=== PATIENT | male | born 1970 | race Caucasian/White ===

== ENCOUNTER 2023-05-03 06:06 | Inpatient (IN) | payer OTHER ==
[~2023-05-03] VITALS: Ht 193 cm; Wt 111.9 kg
[2023-05-03] MEDS ORDERED: FUROSEMIDE 40 MG/4 ML VIAL IV ONE (06:45)
[2023-05-03] MEDS ORDERED: LORazepam 2MG/ML-1ML VIAL IV ONE (07:00)
[2023-05-03 07:02] LABS: Basophils # (auto) 0 10 ^3/uL (0-0.2); Basophils % (auto) 0.5 % (0.0-2.0); Eosinophils # (auto) 0.1 10 ^3/uL (0-0.8); Eosinophils % (auto) 2.7 % (0.0-7.0); Hematocrit 31.9 % (41.0-53.0); Hemoglobin 10.7 g/dL (13.5-17.5); Lymphocytes # (auto) 1.4 10 ^3/uL (0.4-5.4); Lymphocytes % (auto) 25.4 % (10.0-50.0); Mean Corpuscular Hemoglobin 30.7 pg (28.0-32.0); Mean Corpuscular Hgb Conc. 33.6 g/dL (32.0-36.0); Mean Corpuscular Volume 91.2 fL (80.0-100.0); Monocytes # (auto) 0.5 10 ^3/uL (0-1.3); Monocytes % (auto) 9.4 % (0.0-12.0); Neutrophils # (auto) 3.4 10 ^3/uL (1.6-8.6); Nucleated Red Blood Cells % 0.1 %; Red Cell Distribution Width 15.6 % (11.8-14.3); White Blood Cell 5.4 10^3/uL (4.4-10.8)
[2023-05-03 07:13] LABS: Albumin 3.3 g/dL (3.4-5.0); Calcium 8.8 mg/dL (8.5-10.1)
[2023-05-03 07:16] LABS: BUN/Creatinine Ratio 10.5 (10.0-20.0); Bilirubin, Total 1.4 mg/dL (0.2-1.0); Total Protein 9.4 g/dL (6.4-8.2)
[2023-05-03 12:01] LABS: Urine Bacteria FEW /hpf (None Seen); Urine Blood 3+ /uL (Negative); Urine Mucus FEW (None Seen); Urine Specific Gravity 1.015 (1.001-1.035); Urine WBC 557 /hpf (0 - 3); Urine WBC Clumps PRESENT /hpf (None Seen)
[2023-05-03] MEDS ORDERED: NITROGLYCERIN 0.4 MG SL TAB SL PRN (13:15)
[2023-05-03] MEDS ORDERED: AZITHROMYCIN 500MG/ 250ML 250 ML IV ONE (13:30)
[2023-05-03] MEDS ORDERED: cefTRIAXone 1GM/50ML D5W 50 ML IV ONE (13:30)
[2023-05-03 14:06] LABS: Alcohol, Urine < 3.0 mg/dL (0-10); Amphetamine Screen, Urine POSITIVE (NEGATIVE); Barbiturate Scree,Urine NEGATIVE (NEGATIVE); Benzodiazephine Screen, Urine NEGATIVE (NEGATIVE); Cannabinoid Screen, Urine NEGATIVE (NEGATIVE); Cocaine Screen, Urine NEGATIVE (NEGATIVE)
[2023-05-03 14:15] VITALS: BP 138/96
[2023-05-03 14:15] LABS: Opiate Scree,Urine NEGATIVE (NEGATIVE); Phencyclidine Screen, Urine NEGATIVE (NEGATIVE)
[2023-05-03] MEDS ORDERED: MORPHINE SULFATE INJ 2 MG/ml SYRG IV ONE (14:15)
[2023-05-03] MEDS ORDERED: ONDANSETRON HCL 4 MG/2 ML VIAL IV ONE (14:15)
[2023-05-03 16:39] LABS: INR 1.37 (0.9-1.15); Partial Thromboplastin Time 35.3 sec (24.6-33.4)
[2023-05-03] MEDS: ALBUTEROL SULF 2.5 MG/0.5ML(0.5%) NEB SOLN NEB PRN (18:22)
[2023-05-03] MEDS: IPRATROPIUM BROM 0.5 MG/2.5ML INH SOL NEB PRN (18:22)
[2023-05-03] MEDS ORDERED: TEMAZEPAM 15 MG CAP PO ONE (23:15)
[2023-05-04 05:55] LABS: Basophils # (auto) 0 10 ^3/uL (0-0.2); Basophils % (auto) 0.8 % (0.0-2.0); Eosinophils # (auto) 0.1 10 ^3/uL (0-0.8); Eosinophils % (auto) 2.6 % (0.0-7.0); Hematocrit 27.6 % (41.0-53.0); Hemoglobin 9.4 g/dL (13.5-17.5); Lymphocytes # (auto) 1.2 10 ^3/uL (0.4-5.4); Mean Corpuscular Hemoglobin 31.4 pg (28.0-32.0); Mean Corpuscular Hgb Conc. 34.2 g/dL (32.0-36.0); Mean Corpuscular Volume 91.7 fL (80.0-100.0); Monocytes # (auto) 0.5 10 ^3/uL (0-1.3); Monocytes % (auto) 9.5 % (0.0-12.0); Neutrophils # (auto) 3.7 10 ^3/uL (1.6-8.6); Neutrophils % (auto) 65.1 % (37.0-80.0); Nucleated Red Blood Cells % 0.2 %; Red Blood Cells 3.01 10^6/uL (4.5-5.90); Red Cell Distribution Width 14.9 % (11.8-14.3); White Blood Cell 5.6 10^3/uL (4.4-10.8)
[2023-05-04 06:19] LABS: Albumin 2.7 g/dL (3.4-5.0); Calcium 8.7 mg/dL (8.5-10.1)
[2023-05-04 06:27] LABS: BUN/Creatinine Ratio 10.9 (10.0-20.0); Bilirubin, Total 1.3 mg/dL (0.2-1.0); Total Protein 8.3 g/dL (6.4-8.2)
[2023-05-04] MEDS ORDERED: HYDROcodone-ACET 5/325MG TAB PO ONE (09:30)
[2023-05-04] MEDS: ENOXAPARIN SOD 40 MG/0.4 ML SYRINGE SC SCH (09:38)
[2023-05-04] MEDS: cefTRIAXone 1GM/50ML D5W 50 ML IV SCH (09:38)
[2023-05-04] MEDS ORDERED: LISINOPRIL 10 MG TAB PO SCH (10:00)
[2023-05-04] MEDS ORDERED: AZITHROMYCIN 500MG/ 250ML 250 ML IV SCH (10:00)
[2023-05-04] MEDS ORDERED: FUROSEMIDE 20 MG/2 ML VIAL IV SCH (10:00)
[2023-05-04] MEDS ORDERED: PANTOPRAZOLE 40 MG/10 ML VIAL INJ IV SCH (10:00)
[2023-05-04] MEDS ORDERED: LEVOTHYROXINE SODIUM 100 MCG TAB PO ONE (15:00)
[2023-05-04] MEDS: ALBUTEROL SULF 2.5 MG/0.5ML(0.5%) NEB SOLN NEB PRN (18:14)
[2023-05-04] MEDS: IPRATROPIUM BROM 0.5 MG/2.5ML INH SOL NEB PRN (18:14)
[2023-05-04] MEDS: FUROSEMIDE 40 MG/4 ML VIAL IV SCH (18:38)
[2023-05-04] MEDS: DOBUTamine 1000MCG/ML 250 ML IV SCH (18:38)
[2023-05-04] MEDS: HYDROcodone-ACET 5/325MG TAB PO PRN (20:09)
[2023-05-04 22:00] VITALS: BP 111/61
[2023-05-04] MEDS: GENTAMICIN OPTH sol 0.3% 5ml EACHEYE SCH (22:45)
[2023-05-05] VITALS (41 sets, daily range): BP systolic 78–109; BP diastolic 30–67
[2023-05-05] MEDS: DOBUTamine 1000MCG/ML 250 ML IV SCH ×2 (05:34→15:02)
[2023-05-05] MEDS: FUROSEMIDE 40 MG/4 ML VIAL IV SCH (06:00)
[2023-05-05] MEDS: GENTAMICIN OPTH sol 0.3% 5ml EACHEYE SCH ×3 (06:00→21:10)
[2023-05-05] MEDS: LEVOTHYROXINE SODIUM 100 MCG TAB PO SCH (06:48)
[2023-05-05] MEDS: ALBUTEROL SULF 2.5 MG/0.5ML(0.5%) NEB SOLN NEB PRN ×3 (07:10→20:18)
[2023-05-05] MEDS: IPRATROPIUM BROM 0.5 MG/2.5ML INH SOL NEB PRN ×3 (07:10→20:18)
[2023-05-05 07:41] LABS: Basophils # (auto) 0 10 ^3/uL (0-0.2); Basophils % (auto) 0.7 % (0.0-2.0); Eosinophils # (auto) 0.2 10 ^3/uL (0-0.8); Eosinophils % (auto) 3.3 % (0.0-7.0); Hematocrit 27.1 % (41.0-53.0); Hemoglobin 9.1 g/dL (13.5-17.5); Lymphocytes % (auto) 21.9 % (10.0-50.0); Mean Corpuscular Hemoglobin 31.2 pg (28.0-32.0); Mean Corpuscular Hgb Conc. 33.7 g/dL (32.0-36.0); Mean Corpuscular Volume 92.7 fL (80.0-100.0); Monocytes # (auto) 0.5 10 ^3/uL (0-1.3); Monocytes % (auto) 10.2 % (0.0-12.0); Neutrophils % (auto) 63.9 % (37.0-80.0); Nucleated Red Blood Cells % 0.1 %; Red Blood Cells 2.92 10^6/uL (4.5-5.90); Red Cell Distribution Width 15.5 % (11.8-14.3); White Blood Cell 4.6 10^3/uL (4.4-10.8)
[2023-05-05 07:46] LABS: Potassium 3.8 mmol/L (3.5-5.1)
[2023-05-05 07:52] LABS: BUN/Creatinine Ratio 10.4 (10.0-20.0); Calcium 8.5 mg/dL (8.5-10.1)
[2023-05-05] MEDS: HYDROcodone-ACET 5/325MG TAB PO PRN ×2 (09:37→18:41)
[2023-05-05] MEDS: ENOXAPARIN SOD 40 MG/0.4 ML SYRINGE SC SCH (09:37)
[2023-05-05] MEDS: cefTRIAXone 1GM/50ML D5W 50 ML IV SCH (09:38)
[2023-05-05] MEDS: MAGNESIUM OXIDE 400 MG TAB PO SCH (09:38)
[2023-05-05] MEDS: OCTREOTIDE ACETATE 100 MCG/ML VL SUBCUT SCH ×2 (15:17→21:15)
[2023-05-05] MEDS: MIDODRINE HCL 10 MG TAB PO SCH ×2 (15:17→18:00)
[2023-05-05] MEDS: FUROSEMIDE INJECTION 100 MG in D5W 5% 100 ML IV SCH ×2 (17:08→21:00)
[2023-05-05] MEDS ORDERED: LIDOCAINE 1% (LOCAL ANESTH.) PF 5ml SDV ID ONE (18:45)
[2023-05-05] MEDS: SODIUM CHLOR 0.9% PF (SALINE LOCK) 10ML VIAL/SYR IV SCH (21:15)
[2023-05-06] VITALS (91 sets, daily range): BP systolic 80–119; BP diastolic 38–68
[2023-05-06] MEDS: DOBUTamine 1000MCG/ML 250 ML IV SCH ×5 (00:25→21:29)
[2023-05-06] MEDS: FUROSEMIDE INJECTION 100 MG in D5W 5% 100 ML IV SCH (00:26)
[2023-05-06] MEDS: NOREPINEPHRINE 8 MG/250ML KIT 250 ML IV SCH ×2 (01:35→15:00)
[2023-05-06 04:57] LABS: Basophils # (auto) 0 10 ^3/uL (0-0.2); Basophils % (auto) 0.3 % (0.0-2.0); Eosinophils # (auto) 0.2 10 ^3/uL (0-0.8); Eosinophils % (auto) 4.2 % (0.0-7.0); Hematocrit 27.3 % (41.0-53.0); Hemoglobin 9.2 g/dL (13.5-17.5); Lymphocytes % (auto) 21.7 % (10.0-50.0); Mean Corpuscular Hemoglobin 31.5 pg (28.0-32.0); Mean Corpuscular Hgb Conc. 33.7 g/dL (32.0-36.0); Mean Corpuscular Volume 93.5 fL (80.0-100.0); Monocytes # (auto) 0.4 10 ^3/uL (0-1.3); Monocytes % (auto) 9.7 % (0.0-12.0); Neutrophils # (auto) 2.9 10 ^3/uL (1.6-8.6); Neutrophils % (auto) 64.1 % (37.0-80.0); Nucleated Red Blood Cells % 0.1 %; Red Blood Cells 2.92 10^6/uL (4.5-5.90); Red Cell Distribution Width 15.4 % (11.8-14.3); White Blood Cell 4.5 10^3/uL (4.4-10.8)
[2023-05-06 05:14] LABS: BUN/Creatinine Ratio 9.7 (10.0-20.0); Calcium 8.7 mg/dL (8.5-10.1); Potassium 4.1 mmol/L (3.5-5.1)
[2023-05-06] MEDS: MIDODRINE HCL 10 MG TAB PO SCH ×3 (05:59→18:00)
[2023-05-06] MEDS: GENTAMICIN OPTH sol 0.3% 5ml EACHEYE SCH ×3 (06:00→21:29)
[2023-05-06] MEDS: OCTREOTIDE ACETATE 100 MCG/ML VL SUBCUT SCH ×3 (06:00→21:28)
[2023-05-06] MEDS: LEVOTHYROXINE SODIUM 100 MCG TAB PO SCH (06:52)
[2023-05-06] MEDS: BUMETANIDE INJECTION 25 MG in GIVE UN-DILUTED 0 ML IV SCH (08:45)
[2023-05-06] MEDS ORDERED: DIGOXIN (250MCG/ML) 2 ML AMPULE IV ONE (08:45)
[2023-05-06] MEDS: ALBUTEROL SULF 2.5 MG/0.5ML(0.5%) NEB SOLN NEB PRN (09:20)
[2023-05-06] MEDS: IPRATROPIUM BROM 0.5 MG/2.5ML INH SOL NEB PRN (09:20)
[2023-05-06] MEDS ORDERED: DOCUSATE SOD 100 MG CAP PO PRN (10:00)
[2023-05-06] MEDS: MAGNESIUM OXIDE 400 MG TAB PO SCH (10:11)
[2023-05-06] MEDS: ENOXAPARIN SOD 40 MG/0.4 ML SYRINGE SC SCH (10:11)
[2023-05-06] MEDS: HYDROcodone-ACET 5/325MG TAB PO PRN (10:12)
[2023-05-06] MEDS: cefTRIAXone 1GM/50ML D5W 50 ML IV SCH (10:12)
[2023-05-06] MEDS: SODIUM CHLOR 0.9% PF (SALINE LOCK) 10ML VIAL/SYR IV SCH ×2 (10:12→21:29)
[2023-05-06] MEDS: metOLazone 5 MG TAB PO SCH (10:35)
[2023-05-07] VITALS (84 sets, daily range): BP systolic 80–117; BP diastolic 33–72
[2023-05-07] MEDS: DOBUTamine 1000MCG/ML 250 ML IV SCH ×3 (02:38→20:01)
[2023-05-07] MEDS: NOREPINEPHRINE 8 MG/250ML KIT 250 ML IV SCH (03:35)
[2023-05-07] MEDS: BUMETANIDE INJECTION 25 MG in GIVE UN-DILUTED 0 ML IV SCH (03:54)
[2023-05-07 04:53] LABS: Basophils # (auto) 0 10 ^3/uL (0-0.2); Basophils % (auto) 0.7 % (0.0-2.0); Eosinophils # (auto) 0.2 10 ^3/uL (0-0.8); Eosinophils % (auto) 4.7 % (0.0-7.0); Hematocrit 27.9 % (41.0-53.0); Hemoglobin 9.3 g/dL (13.5-17.5); Lymphocytes # (auto) 0.9 10 ^3/uL (0.4-5.4); Mean Corpuscular Hemoglobin 31.3 pg (28.0-32.0); Mean Corpuscular Hgb Conc. 33.3 g/dL (32.0-36.0); Mean Corpuscular Volume 93.8 fL (80.0-100.0); Monocytes # (auto) 0.4 10 ^3/uL (0-1.3); Monocytes % (auto) 9.9 % (0.0-12.0); Neutrophils # (auto) 2.3 10 ^3/uL (1.6-8.6); Neutrophils % (auto) 61.7 % (37.0-80.0); Nucleated Red Blood Cells % 0.2 %; Red Blood Cells 2.97 10^6/uL (4.5-5.90); Red Cell Distribution Width 15.2 % (11.8-14.3); White Blood Cell 3.7 10^3/uL (4.4-10.8)
[2023-05-07 05:18] LABS: Calcium 8.5 mg/dL (8.5-10.1)
[2023-05-07] MEDS: OCTREOTIDE ACETATE 100 MCG/ML VL SUBCUT SCH ×3 (06:00→23:33)
[2023-05-07] MEDS: GENTAMICIN OPTH sol 0.3% 5ml EACHEYE SCH ×3 (06:00→22:00)
[2023-05-07] MEDS: MIDODRINE HCL 10 MG TAB PO SCH ×3 (06:00→17:50)
[2023-05-07] MEDS: LEVOTHYROXINE SODIUM 100 MCG TAB PO SCH (06:33)
[2023-05-07] MEDS: cefTRIAXone 1GM/50ML D5W 50 ML IV SCH (08:33)
[2023-05-07] MEDS: ENOXAPARIN SOD 40 MG/0.4 ML SYRINGE SC SCH (09:32)
[2023-05-07] MEDS: MAGNESIUM OXIDE 400 MG TAB PO SCH (09:32)
[2023-05-07] MEDS: FAMOTIDINE 20 MG TAB PO SCH (09:32)
[2023-05-07] MEDS: SODIUM CHLOR 0.9% PF (SALINE LOCK) 10ML VIAL/SYR IV SCH ×2 (09:32→23:33)
[2023-05-07] MEDS ORDERED: CALCIUM CARB 500 MG CHEW TAB PO PRN (09:45)
[2023-05-07] MEDS: metOLazone 5 MG TAB PO SCH (10:07)
[2023-05-07] MEDS: HYDROcodone-ACET 5/325MG TAB PO PRN (13:59)
[2023-05-08] VITALS (50 sets, daily range): BP systolic 85–116; BP diastolic 37–71
[2023-05-08] MEDS: DOBUTamine 1000MCG/ML 250 ML IV SCH ×5 (00:53→22:27)
[2023-05-08] MEDS: GENTAMICIN OPTH sol 0.3% 5ml EACHEYE SCH ×3 (06:00→22:00)
[2023-05-08 06:09] LABS: Basophils # (auto) 0 10 ^3/uL (0-0.2); Basophils % (auto) 0.9 % (0.0-2.0); Eosinophils # (auto) 0.1 10 ^3/uL (0-0.8); Eosinophils % (auto) 4.3 % (0.0-7.0); Hemoglobin 8.6 g/dL (13.5-17.5); Lymphocytes # (auto) 0.7 10 ^3/uL (0.4-5.4); Lymphocytes % (auto) 21.5 % (10.0-50.0); Mean Corpuscular Hemoglobin 31.2 pg (28.0-32.0); Mean Corpuscular Hgb Conc. 33.2 g/dL (32.0-36.0); Mean Corpuscular Volume 93.9 fL (80.0-100.0); Monocytes # (auto) 0.4 10 ^3/uL (0-1.3); Monocytes % (auto) 10.7 % (0.0-12.0); Neutrophils # (auto) 2.2 10 ^3/uL (1.6-8.6); Neutrophils % (auto) 62.6 % (37.0-80.0); Nucleated Red Blood Cells % 0.1 %; Red Blood Cells 2.77 10^6/uL (4.5-5.90); Red Cell Distribution Width 14.9 % (11.8-14.3); White Blood Cell 3.5 10^3/uL (4.4-10.8)
[2023-05-08] MEDS: HYDROcodone-ACET 5/325MG TAB PO PRN ×2 (06:48→20:11)
[2023-05-08] MEDS: MIDODRINE HCL 10 MG TAB PO SCH ×3 (06:48→17:30)
[2023-05-08] MEDS: OCTREOTIDE ACETATE 100 MCG/ML VL SUBCUT SCH ×3 (06:49→21:26)
[2023-05-08] MEDS: LEVOTHYROXINE SODIUM 100 MCG TAB PO SCH (06:49)
[2023-05-08] MEDS: cefTRIAXone 1GM/50ML D5W 50 ML IV SCH (09:14)
[2023-05-08] MEDS: SODIUM CHLOR 0.9% PF (SALINE LOCK) 10ML VIAL/SYR IV SCH ×2 (09:16→22:00)
[2023-05-08] MEDS: MAGNESIUM OXIDE 400 MG TAB PO SCH (09:16)
[2023-05-08] MEDS: BUMETANIDE INJECTION 25 MG in GIVE UN-DILUTED 0 ML IV SCH ×2 (09:16→22:28)
[2023-05-08] MEDS: FAMOTIDINE 20 MG TAB PO SCH (09:16)
[2023-05-08] MEDS: ENOXAPARIN SOD 40 MG/0.4 ML SYRINGE SC SCH (09:17)
[2023-05-08] MEDS: metOLazone 5 MG TAB PO SCH (09:17)
[2023-05-08 09:24] LABS: Albumin 2.4 g/dL (3.4-5.0); Calcium 8.4 mg/dL (8.5-10.1); Potassium 3.8 mmol/L (3.5-5.1)
[2023-05-08 09:27] LABS: BUN/Creatinine Ratio 10.6 (10.0-20.0); Bilirubin, Total 0.9 mg/dL (0.2-1.0); Total Protein 7.6 g/dL (6.4-8.2)
[2023-05-08] MEDS: NOREPINEPHRINE 8 MG/250ML KIT 250 ML IV SCH (15:00)
[2023-05-09] VITALS (61 sets, daily range): BP systolic 78–136; BP diastolic 34–83
[2023-05-09] MEDS: ALBUMIN 25% 100 ML IV SCH ×3 (00:28→23:00)
[2023-05-09] MEDS: MIDODRINE HCL 10 MG TAB PO SCH ×3 (05:10→18:14)
[2023-05-09] MEDS: LEVOTHYROXINE SODIUM 100 MCG TAB PO SCH (05:10)
[2023-05-09] MEDS: HYDROcodone-ACET 5/325MG TAB PO PRN ×2 (05:11→23:05)
[2023-05-09] MEDS: OCTREOTIDE ACETATE 100 MCG/ML VL SUBCUT SCH ×3 (05:11→23:01)
[2023-05-09] MEDS: DOBUTamine 1000MCG/ML 250 ML IV SCH ×3 (05:12→12:31)
[2023-05-09] MEDS: GENTAMICIN OPTH sol 0.3% 5ml EACHEYE SCH ×3 (06:00→22:00)
[2023-05-09 06:31] LABS: Potassium 3.4 mmol/L (3.5-5.1)
[2023-05-09 06:45] LABS: BUN/Creatinine Ratio 11.5 (10.0-20.0); Calcium 8.6 mg/dL (8.5-10.1)
[2023-05-09 07:01] LABS: Basophils # (auto) 0 10 ^3/uL (0-0.2); Basophils % (auto) 0.8 % (0.0-2.0); Eosinophils # (auto) 0.2 10 ^3/uL (0-0.8); Hematocrit 29.4 % (41.0-53.0); Hemoglobin 9.9 g/dL (13.5-17.5); Lymphocytes # (auto) 0.8 10 ^3/uL (0.4-5.4); Lymphocytes % (auto) 21.4 % (10.0-50.0); Mean Corpuscular Hemoglobin 30.9 pg (28.0-32.0); Mean Corpuscular Hgb Conc. 33.6 g/dL (32.0-36.0); Mean Corpuscular Volume 91.7 fL (80.0-100.0); Monocytes # (auto) 0.4 10 ^3/uL (0-1.3); Monocytes % (auto) 11.6 % (0.0-12.0); Neutrophils # (auto) 2.4 10 ^3/uL (1.6-8.6); Neutrophils % (auto) 61.2 % (37.0-80.0); Nucleated Red Blood Cells % 0.2 %; Red Cell Distribution Width 14.8 % (11.8-14.3); White Blood Cell 3.9 10^3/uL (4.4-10.8)
[2023-05-09] MEDS ORDERED: BUMETANIDE INJECTION 25 MG in GIVE UN-DILUTED 0 ML IV SCH (09:15)
[2023-05-09] MEDS: MAGNESIUM OXIDE 400 MG TAB PO SCH (09:45)
[2023-05-09] MEDS: FAMOTIDINE 20 MG TAB PO SCH (09:45)
[2023-05-09] MEDS: POTASSIUM EFFERVESENT TAB 25 MEQ PO SCH (09:45)
[2023-05-09] MEDS: cefTRIAXone 1GM/50ML D5W 50 ML IV SCH (09:46)
[2023-05-09] MEDS: SODIUM CHLOR 0.9% PF (SALINE LOCK) 10ML VIAL/SYR IV SCH ×2 (09:46→23:00)
[2023-05-09] MEDS: metOLazone 5 MG TAB PO SCH (09:48)
[2023-05-09] MEDS: ENOXAPARIN SOD 40 MG/0.4 ML SYRINGE SC SCH (09:48)
[2023-05-09] MEDS: SALINE 0.65 % NASAL SPRAY 45ML BOTTLE EACHNOSTRI SCH ×3 (10:17→22:00)
[2023-05-09] MEDS: NOREPINEPHRINE 8 MG/250ML KIT 250 ML IV SCH (15:00)
[2023-05-10] VITALS (76 sets, daily range): BP systolic 84–124; BP diastolic 35–79
[2023-05-10] MEDS: DOBUTamine 1000MCG/ML 250 ML IV SCH (02:30)
[2023-05-10] MEDS: NOREPINEPHRINE 8 MG/250ML KIT 250 ML IV SCH (02:37)
[2023-05-10] MEDS: HYDROcodone-ACET 5/325MG TAB PO PRN ×2 (05:12→17:17)
[2023-05-10] MEDS: SALINE 0.65 % NASAL SPRAY 45ML BOTTLE EACHNOSTRI SCH ×4 (06:00→23:07)
[2023-05-10] MEDS: OCTREOTIDE ACETATE 100 MCG/ML VL SUBCUT SCH ×3 (06:00→23:01)
[2023-05-10] MEDS: GENTAMICIN OPTH sol 0.3% 5ml EACHEYE SCH ×3 (06:00→22:00)
[2023-05-10] MEDS: MIDODRINE HCL 10 MG TAB PO SCH ×3 (07:54→17:54)
[2023-05-10] MEDS: LEVOTHYROXINE SODIUM 100 MCG TAB PO SCH (07:54)
[2023-05-10 08:05] LABS: Basophils # (auto) 0.1 10 ^3/uL (0-0.2); Eosinophils # (auto) 0.2 10 ^3/uL (0-0.8); Eosinophils % (auto) 4.7 % (0.0-7.0); Hematocrit 31.6 % (41.0-53.0); Hemoglobin 10.6 g/dL (13.5-17.5); Lymphocytes # (auto) 1.4 10 ^3/uL (0.4-5.4); Lymphocytes % (auto) 26.1 % (10.0-50.0); Mean Corpuscular Hemoglobin 30.6 pg (28.0-32.0); Mean Corpuscular Hgb Conc. 33.6 g/dL (32.0-36.0); Mean Corpuscular Volume 91.1 fL (80.0-100.0); Monocytes # (auto) 0.8 10 ^3/uL (0-1.3); Monocytes % (auto) 15.2 % (0.0-12.0); Neutrophils # (auto) 2.7 10 ^3/uL (1.6-8.6); Nucleated Red Blood Cells % 0.2 %; Red Blood Cells 3.46 10^6/uL (4.5-5.90); White Blood Cell 5.2 10^3/uL (4.4-10.8)
[2023-05-10 08:29] LABS: Calcium 8.5 mg/dL (8.5-10.1); Potassium 3.2 mmol/L (3.5-5.1)
[2023-05-10 08:32] LABS: BUN/Creatinine Ratio 10.9 (10.0-20.0)
[2023-05-10] MEDS ORDERED: BUMETANIDE INJECTION 25 MG in GIVE UN-DILUTED 0 ML IV SCH (08:45)
[2023-05-10] MEDS: POTASSIUM CHL 20MEQ/100ML 100 ML IV SCH ×2 (10:45→11:26)
[2023-05-10] MEDS: POTASSIUM EFFERVESENT TAB 25 MEQ PO SCH (11:22)
[2023-05-10] MEDS: ENOXAPARIN SOD 40 MG/0.4 ML SYRINGE SC SCH (11:23)
[2023-05-10] MEDS: metOLazone 5 MG TAB PO SCH (11:23)
[2023-05-10] MEDS: FAMOTIDINE 20 MG TAB PO SCH (11:24)
[2023-05-10] MEDS: DIGOXIN (250MCG/ML) 2 ML AMPULE IV SCH ×3 (11:24→23:00)
[2023-05-10] MEDS: MAGNESIUM OXIDE 400 MG TAB PO SCH (11:24)
[2023-05-10] MEDS: cefTRIAXone 1GM/50ML D5W 50 ML IV SCH (11:26)
[2023-05-10] MEDS: SODIUM CHLOR 0.9% PF (SALINE LOCK) 10ML VIAL/SYR IV SCH ×2 (11:26→23:01)
[2023-05-10] MEDS ORDERED: POTASSIUM CHL 20MEQ/100ML 100 ML IV SCH (16:45)
[2023-05-10] MEDS: ALBUMIN 25% 100 ML IV SCH ×2 (16:58→23:02)
[2023-05-11] VITALS (72 sets, daily range): BP systolic 80–112; BP diastolic 38–69
[2023-05-11] MEDS: MORPHINE SULFATE INJ 2 MG/ml SYRG IV PRN (01:30)
[2023-05-11 05:08] LABS: Basophils # (auto) 0.1 10 ^3/uL (0-0.2); Basophils % (auto) 1.1 % (0.0-2.0); Eosinophils # (auto) 0.3 10 ^3/uL (0-0.8); Eosinophils % (auto) 5.8 % (0.0-7.0); Hematocrit 32.9 % (41.0-53.0); Lymphocytes # (auto) 1.6 10 ^3/uL (0.4-5.4); Lymphocytes % (auto) 26.6 % (10.0-50.0); Mean Corpuscular Hemoglobin 30.8 pg (28.0-32.0); Mean Corpuscular Hgb Conc. 33.6 g/dL (32.0-36.0); Mean Corpuscular Volume 91.9 fL (80.0-100.0); Monocytes # (auto) 0.9 10 ^3/uL (0-1.3); Monocytes % (auto) 15.9 % (0.0-12.0); Neutrophils % (auto) 50.6 % (37.0-80.0); Red Blood Cells 3.58 10^6/uL (4.5-5.90); Red Cell Distribution Width 15.1 % (11.8-14.3); White Blood Cell 5.9 10^3/uL (4.4-10.8)
[2023-05-11 05:18] LABS: BUN/Creatinine Ratio 11.8 (10.0-20.0); Calcium 8.4 mg/dL (8.5-10.1); Magnesium 1.3 mg/dL (1.6-2.6); Phosphorus 1.9 mg/dL (2.5-4.90); Potassium 3.3 mmol/L (3.5-5.1)
[2023-05-11] MEDS: GENTAMICIN OPTH sol 0.3% 5ml EACHEYE SCH ×3 (06:00→21:15)
[2023-05-11] MEDS: MIDODRINE HCL 10 MG TAB PO SCH ×3 (06:05→19:31)
[2023-05-11] MEDS: OCTREOTIDE ACETATE 100 MCG/ML VL SUBCUT SCH ×2 (06:06→14:18)
[2023-05-11] MEDS: SALINE 0.65 % NASAL SPRAY 45ML BOTTLE EACHNOSTRI SCH ×4 (06:23→21:15)
[2023-05-11] MEDS: LEVOTHYROXINE SODIUM 100 MCG TAB PO SCH (06:33)
[2023-05-11] MEDS ORDERED: MAGNESIUM SULFATE 1GM/100ML 100 ML IV ONE (09:00)
[2023-05-11] MEDS: cefTRIAXone 1GM/50ML D5W 50 ML IV SCH (09:01)
[2023-05-11] MEDS ORDERED: POTASSIUM PHOSPHATE 26.4 MEQ in SODIUM CHL 0.9% 100 ML IV ONE (09:30)
[2023-05-11] MEDS: POTASSIUM EFFERVESENT TAB 25 MEQ PO SCH (11:00)
[2023-05-11] MEDS: FAMOTIDINE 20 MG TAB PO SCH (11:01)
[2023-05-11] MEDS: metOLazone 5 MG TAB PO SCH (11:01)
[2023-05-11] MEDS: MAGNESIUM OXIDE 400 MG TAB PO SCH (11:01)
[2023-05-11] MEDS: SODIUM CHLOR 0.9% PF (SALINE LOCK) 10ML VIAL/SYR IV SCH ×2 (11:03→21:16)
[2023-05-11] MEDS ORDERED: POTASSIUM EFFERVESENT TAB 25 MEQ PO ONE (12:30)
[2023-05-11] MEDS ORDERED: acetaZOLAMIDE SODIUM 500 MG VL IV ONE (12:30)
[2023-05-11] MEDS ORDERED: ALBUMIN 25% 0 ML IV ONE (14:04)
[2023-05-11] MEDS ORDERED: ALBUMIN 25% 100 ML IV ONE (14:06)
[2023-05-11] MEDS: ALBUMIN 25% 100 ML IV SCH (14:10)
[2023-05-11] MEDS: NOREPINEPHRINE 8 MG/250ML KIT 250 ML IV SCH (15:00)
[2023-05-11] MEDS: HYDROcodone-ACET 5/325MG TAB PO PRN (21:07)
[2023-05-11] MEDS: APIXABAN 5 MG TAB PO SCH (21:07)
[2023-05-12] VITALS (88 sets, daily range): BP systolic 73–110; BP diastolic 32–66
[2023-05-12] MEDS: NOREPINEPHRINE 8 MG/250ML KIT 250 ML IV SCH ×2 (01:11→21:52)
[2023-05-12 05:27] LABS: Albumin 2.7 g/dL (3.4-5.0); Calcium 8.2 mg/dL (8.5-10.1); Magnesium 1.6 mg/dL (1.6-2.6); Potassium 3.2 mmol/L (3.5-5.1)
[2023-05-12 05:30] LABS: BUN/Creatinine Ratio 12.6 (10.0-20.0); Bilirubin, Total 1.8 mg/dL (0.2-1.0); Phosphorus 2.3 mg/dL (2.5-4.90); Total Protein 6.8 g/dL (6.4-8.2)
[2023-05-12] MEDS: GENTAMICIN OPTH sol 0.3% 5ml EACHEYE SCH ×3 (06:00→22:00)
[2023-05-12] MEDS: MIDODRINE HCL 10 MG TAB PO SCH ×3 (06:25→18:41)
[2023-05-12] MEDS: LEVOTHYROXINE SODIUM 100 MCG TAB PO SCH (06:25)
[2023-05-12] MEDS: SALINE 0.65 % NASAL SPRAY 45ML BOTTLE EACHNOSTRI SCH ×4 (06:31→21:51)
[2023-05-12] MEDS ORDERED: ALBUMIN 25% 50 ML IV ONE (08:00)
[2023-05-12] MEDS ORDERED: POTASSIUM CHL 20MEQ/100ML 100 ML IV ONE (08:00)
[2023-05-12] MEDS ORDERED: MAGNESIUM OXIDE 400 MG TAB PO ONE (08:00)
[2023-05-12] MEDS: MAGNESIUM OXIDE 400 MG TAB PO SCH (10:00)
[2023-05-12] MEDS ORDERED: FUROSEMIDE 40 MG TAB PO SCH (10:00)
[2023-05-12] MEDS: POTASSIUM EFFERVESENT TAB 25 MEQ PO SCH (10:02)
[2023-05-12] MEDS: DIGOXIN 0.125 MG TAB PO SCH (10:03)
[2023-05-12] MEDS: APIXABAN 5 MG TAB PO SCH ×2 (10:04→21:51)
[2023-05-12] MEDS: FAMOTIDINE 20 MG TAB PO SCH (10:05)
[2023-05-12] MEDS: SODIUM CHLOR 0.9% PF (SALINE LOCK) 10ML VIAL/SYR IV SCH ×2 (10:05→21:53)
[2023-05-12] MEDS: LOPERAMIDE HCL 2 MG CAP/TAB PO PRN (13:12)
[2023-05-12] MEDS ORDERED: acetaZOLAMIDE SODIUM 500 MG VL IV ONE (14:00)
[2023-05-12] MEDS: HYDROcodone-ACET 5/325MG TAB PO PRN ×2 (14:39→21:51)
[2023-05-13] VITALS (83 sets, daily range): BP systolic 82–138; BP diastolic 37–76
[2023-05-13 03:47] LABS: BUN/Creatinine Ratio 14.4 (10.0-20.0); Calcium 8.2 mg/dL (8.5-10.1); Potassium 3.2 mmol/L (3.5-5.1)
[2023-05-13] MEDS: GENTAMICIN OPTH sol 0.3% 5ml EACHEYE SCH ×4 (06:00→22:20)
[2023-05-13] MEDS: LEVOTHYROXINE SODIUM 100 MCG TAB PO SCH (06:00)
[2023-05-13] MEDS: MIDODRINE HCL 10 MG TAB PO SCH ×3 (06:00→18:03)
[2023-05-13] MEDS: SALINE 0.65 % NASAL SPRAY 45ML BOTTLE EACHNOSTRI SCH ×4 (06:00→22:00)
[2023-05-13] MEDS: LOPERAMIDE HCL 2 MG CAP/TAB PO PRN (06:03)
[2023-05-13] MEDS: MAGNESIUM OXIDE 400 MG TAB PO SCH (10:08)
[2023-05-13] MEDS: FAMOTIDINE 20 MG TAB PO SCH (10:08)
[2023-05-13] MEDS: APIXABAN 5 MG TAB PO SCH ×2 (10:08→22:00)
[2023-05-13] MEDS: DIGOXIN 0.125 MG TAB PO SCH (10:08)
[2023-05-13] MEDS: HYDROcodone-ACET 5/325MG TAB PO PRN ×2 (10:08→21:06)
[2023-05-13] MEDS: POTASSIUM EFFERVESENT TAB 25 MEQ PO SCH (10:09)
[2023-05-13] MEDS: SODIUM CHLOR 0.9% PF (SALINE LOCK) 10ML VIAL/SYR IV SCH ×2 (10:10→22:00)
[2023-05-13] MEDS ORDERED: POTASSIUM EFFERVESENT TAB 25 MEQ GT ONE (12:15)
[2023-05-13] MEDS ORDERED: POTASSIUM CHL 20 Meq TABLET PO ONE (12:15)
[2023-05-13] MEDS ORDERED: cefTRIAXone 1GM/50ML D5W 50 ML IV ONE (14:15)
[2023-05-13 16:05] LABS: Hepatitis B Surface Antibody Negative (Negative)
[2023-05-13 16:44] LABS: Hepatitis A Total Antibody Positive (Negative)
[2023-05-13 17:13] LABS: Hepatitis C Antibody Negative (Negative)
[2023-05-13] MEDS: NOREPINEPHRINE 8 MG/250ML KIT 250 ML IV SCH (19:05)
[2023-05-14] VITALS (87 sets, daily range): BP systolic 78–167; BP diastolic 38–120
[2023-05-14] MEDS: LEVOTHYROXINE SODIUM 50 MCG TAB PO SCH (05:58)
[2023-05-14] MEDS: SALINE 0.65 % NASAL SPRAY 45ML BOTTLE EACHNOSTRI SCH ×4 (05:59→22:00)
[2023-05-14] MEDS: MIDODRINE HCL 10 MG TAB PO SCH ×3 (05:59→18:43)
[2023-05-14 06:56] LABS: Basophils # (auto) 0.1 10 ^3/uL (0-0.2); Basophils % (auto) 1.1 % (0.0-2.0); Eosinophils # (auto) 0.3 10 ^3/uL (0-0.8); Eosinophils % (auto) 6.8 % (0.0-7.0); Hematocrit 29.2 % (41.0-53.0); Hemoglobin 9.8 g/dL (13.5-17.5); Lymphocytes # (auto) 1.5 10 ^3/uL (0.4-5.4); Lymphocytes % (auto) 30.8 % (10.0-50.0); Mean Corpuscular Hemoglobin 30.8 pg (28.0-32.0); Mean Corpuscular Hgb Conc. 33.4 g/dL (32.0-36.0); Mean Corpuscular Volume 92.3 fL (80.0-100.0); Monocytes # (auto) 0.8 10 ^3/uL (0-1.3); Monocytes % (auto) 16.5 % (0.0-12.0); Neutrophils # (auto) 2.1 10 ^3/uL (1.6-8.6); Neutrophils % (auto) 44.8 % (37.0-80.0); Red Blood Cells 3.17 10^6/uL (4.5-5.90); Red Cell Distribution Width 15.2 % (11.8-14.3); White Blood Cell 4.8 10^3/uL (4.4-10.8)
[2023-05-14 06:57] LABS: Albumin 2.9 g/dL (3.4-5.0); Calcium 8.4 mg/dL (8.5-10.1); Magnesium 1.9 mg/dL (1.6-2.6); Potassium 3.4 mmol/L (3.5-5.1)
[2023-05-14 07:02] LABS: BUN/Creatinine Ratio 17.2 (10.0-20.0); Bilirubin, Total 1.2 mg/dL (0.2-1.0); Total Protein 7.4 g/dL (6.4-8.2)
[2023-05-14] MEDS: POTASSIUM EFFERVESENT TAB 25 MEQ PO SCH (09:15)
[2023-05-14] MEDS: SODIUM CHLOR 0.9% PF (SALINE LOCK) 10ML VIAL/SYR IV SCH ×2 (09:16→23:12)
[2023-05-14] MEDS: HYDROcodone-ACET 5/325MG TAB PO PRN (09:16)
[2023-05-14] MEDS: THIAMINE HCL 100 MG TAB PO SCH (09:17)
[2023-05-14] MEDS: MAGNESIUM OXIDE 400 MG TAB PO SCH (09:17)
[2023-05-14] MEDS: APIXABAN 5 MG TAB PO SCH ×2 (09:17→23:12)
[2023-05-14] MEDS: MULTIPLE VITAMINS W/ MINERALS TAB PO SCH (09:17)
[2023-05-14] MEDS: FAMOTIDINE 20 MG TAB PO SCH (09:18)
[2023-05-14] MEDS: FOLIC ACID 1 MG TAB PO SCH (09:18)
[2023-05-14] MEDS: cefTRIAXone 1GM/50ML D5W 50 ML IV SCH (09:18)
[2023-05-14] MEDS: DIGOXIN 0.125 MG TAB PO SCH (09:20)
[2023-05-14 11:07] LABS: INR 1.42 (0.9-1.15); Partial Thromboplastin Time 36.8 SEC (24.5-34.5)
[2023-05-14] MEDS: GENTAMICIN OPTH sol 0.3% 5ml EACHEYE SCH ×2 (16:04→22:00)
[2023-05-15] VITALS (86 sets, daily range): BP systolic 77–124; BP diastolic 41–81
[2023-05-15] MEDS: NOREPINEPHRINE 8 MG/250ML KIT 250 ML IV SCH ×2 (01:44→18:04)
[2023-05-15 05:45] LABS: Basophils # (auto) 0.1 10 ^3/uL (0-0.2); Basophils % (auto) 1.2 % (0.0-2.0); Eosinophils # (auto) 0.3 10 ^3/uL (0-0.8); Eosinophils % (auto) 5.5 % (0.0-7.0); Hematocrit 27.9 % (41.0-53.0); Hemoglobin 9.4 g/dL (13.5-17.5); Lymphocytes # (auto) 1.6 10 ^3/uL (0.4-5.4); Lymphocytes % (auto) 28.8 % (10.0-50.0); Mean Corpuscular Hemoglobin 31.1 pg (28.0-32.0); Mean Corpuscular Hgb Conc. 33.5 g/dL (32.0-36.0); Mean Corpuscular Volume 92.7 fL (80.0-100.0); Monocytes # (auto) 0.8 10 ^3/uL (0-1.3); Monocytes % (auto) 14.7 % (0.0-12.0); Neutrophils # (auto) 2.7 10 ^3/uL (1.6-8.6); Neutrophils % (auto) 49.8 % (37.0-80.0); Nucleated Red Blood Cells % 0.1 %; Red Blood Cells 3.02 10^6/uL (4.5-5.90); Red Cell Distribution Width 15.4 % (11.8-14.3); White Blood Cell 5.4 10^3/uL (4.4-10.8)
[2023-05-15] MEDS: MIDODRINE HCL 10 MG TAB PO SCH ×3 (05:52→17:56)
[2023-05-15] MEDS: LEVOTHYROXINE SODIUM 50 MCG TAB PO SCH (05:53)
[2023-05-15] MEDS: SALINE 0.65 % NASAL SPRAY 45ML BOTTLE EACHNOSTRI SCH ×4 (05:53→22:00)
[2023-05-15] MEDS: GENTAMICIN OPTH sol 0.3% 5ml EACHEYE SCH ×4 (05:53→22:00)
[2023-05-15 06:01] LABS: Albumin 3.3 g/dL (3.4-5.0); Calcium 8.4 mg/dL (8.5-10.1); Magnesium 1.8 mg/dL (1.6-2.6); Potassium 3.4 mmol/L (3.5-5.1)
[2023-05-15 06:07] LABS: Bilirubin, Total 1.1 mg/dL (0.2-1.0); Phosphorus 2.3 mg/dL (2.5-4.90)
[2023-05-15 07:14] LABS: BUN/Creatinine Ratio 19.9 (10.0-20.0)
[2023-05-15] MEDS: HYDROcodone-ACET 5/325MG TAB PO PRN ×2 (07:59→20:00)
[2023-05-15] MEDS: FAMOTIDINE 20 MG TAB PO SCH (09:06)
[2023-05-15] MEDS: DIGOXIN 0.125 MG TAB PO SCH (09:06)
[2023-05-15] MEDS: cefTRIAXone 1GM/50ML D5W 50 ML IV SCH (09:06)
[2023-05-15] MEDS: APIXABAN 5 MG TAB PO SCH ×2 (09:06→20:00)
[2023-05-15] MEDS: SODIUM CHLOR 0.9% PF (SALINE LOCK) 10ML VIAL/SYR IV SCH ×2 (09:07→22:00)
[2023-05-15] MEDS: THIAMINE HCL 100 MG TAB PO SCH (11:50)
[2023-05-15] MEDS: POTASSIUM EFFERVESENT TAB 25 MEQ PO SCH (11:50)
[2023-05-15] MEDS: MAGNESIUM OXIDE 400 MG TAB PO SCH (11:50)
[2023-05-15] MEDS: MULTIPLE VITAMINS W/ MINERALS TAB PO SCH (11:50)
[2023-05-15] MEDS: FOLIC ACID 1 MG TAB PO SCH (11:50)
[2023-05-15] MEDS: MORPHINE SULFATE INJ 2 MG/ml SYRG IV PRN (12:11)
[2023-05-15] MEDS ORDERED: FUROSEMIDE 40 MG/4 ML VIAL IV ONE (17:15)
[2023-05-15] MEDS ORDERED: FUROSEMIDE 40 MG/4 ML VIAL IV SCH (18:00)
[2023-05-16] VITALS (80 sets, daily range): BP systolic 80–125; BP diastolic 38–75
[2023-05-16] MEDS: MIDODRINE HCL 10 MG TAB PO SCH ×3 (06:57→17:34)
[2023-05-16 07:40] LABS: Potassium 3.5 mmol/L (3.5-5.1)
[2023-05-16 07:42] LABS: BUN/Creatinine Ratio 19.9 (10.0-20.0)
[2023-05-16] MEDS: LEVOTHYROXINE SODIUM 50 MCG TAB PO SCH (08:29)
[2023-05-16] MEDS: GENTAMICIN OPTH sol 0.3% 5ml EACHEYE SCH ×3 (08:29→21:06)
[2023-05-16] MEDS: SALINE 0.65 % NASAL SPRAY 45ML BOTTLE EACHNOSTRI SCH ×4 (08:29→21:06)
[2023-05-16] MEDS: cefTRIAXone 1GM/50ML D5W 50 ML IV SCH (09:03)
[2023-05-16] MEDS ORDERED: FUROSEMIDE 40 MG/4 ML VIAL IV SCH (10:00)
[2023-05-16] MEDS: APIXABAN 5 MG TAB PO SCH ×2 (11:37→21:05)
[2023-05-16] MEDS: MAGNESIUM OXIDE 400 MG TAB PO SCH (11:37)
[2023-05-16] MEDS: DIGOXIN 0.125 MG TAB PO SCH (11:38)
[2023-05-16] MEDS: MULTIPLE VITAMINS W/ MINERALS TAB PO SCH (11:38)
[2023-05-16] MEDS: FOLIC ACID 1 MG TAB PO SCH (11:38)
[2023-05-16] MEDS: FAMOTIDINE 20 MG TAB PO SCH (11:38)
[2023-05-16] MEDS: SODIUM CHLOR 0.9% PF (SALINE LOCK) 10ML VIAL/SYR IV SCH ×2 (11:39→21:06)
[2023-05-16] MEDS: POTASSIUM EFFERVESENT TAB 25 MEQ PO SCH (11:40)
[2023-05-16] MEDS: THIAMINE HCL 100 MG TAB PO SCH (11:41)
[2023-05-16] MEDS: ALPRAZolam 0.25 MG TAB PO PRN (11:55)
[2023-05-16 12:21] LABS: Basophils # (auto) 0 10 ^3/uL (0-0.2); Basophils % (auto) 0.4 % (0.0-2.0); Eosinophils # (auto) 0.2 10 ^3/uL (0-0.8); Eosinophils % (auto) 4.3 % (0.0-7.0); Hematocrit 26.4 % (41.0-53.0); Hemoglobin 8.9 g/dL (13.5-17.5); Lymphocytes # (auto) 1.1 10 ^3/uL (0.4-5.4); Lymphocytes % (auto) 21.6 % (10.0-50.0); Mean Corpuscular Hemoglobin 31.4 pg (28.0-32.0); Mean Corpuscular Hgb Conc. 33.7 g/dL (32.0-36.0); Mean Corpuscular Volume 93.2 fL (80.0-100.0); Monocytes # (auto) 0.7 10 ^3/uL (0-1.3); Monocytes % (auto) 14.3 % (0.0-12.0); Neutrophils # (auto) 3.1 10 ^3/uL (1.6-8.6); Neutrophils % (auto) 59.4 % (37.0-80.0); Red Blood Cells 2.84 10^6/uL (4.5-5.90); Red Cell Distribution Width 15.6 % (11.8-14.3); White Blood Cell 5.1 10^3/uL (4.4-10.8)
[2023-05-16] MEDS: HYDROcodone-ACET 5/325MG TAB PO PRN ×2 (13:15→21:06)
[2023-05-16] MEDS ORDERED: MAGNESIUM SULFATE 1GM/100ML 100 ML IV ONE (14:15)
[2023-05-16] MEDS ORDERED: POTASSIUM CHL 20 Meq TABLET PO ONE (14:15)
[2023-05-16] MEDS ORDERED: traMADol HCL 50 MG TAB PO ONE (16:30)
[2023-05-17] VITALS (67 sets, daily range): BP systolic 80–119; BP diastolic 33–70
[2023-05-17] MEDS: GENTAMICIN OPTH sol 0.3% 5ml EACHEYE SCH ×3 (06:00→21:59)
[2023-05-17] MEDS: SALINE 0.65 % NASAL SPRAY 45ML BOTTLE EACHNOSTRI SCH ×4 (06:00→21:58)
[2023-05-17] MEDS: MIDODRINE HCL 10 MG TAB PO SCH ×3 (07:26→18:58)
[2023-05-17] MEDS: LEVOTHYROXINE SODIUM 50 MCG TAB PO SCH (07:26)
[2023-05-17 08:33] LABS: Basophils # (auto) 0.1 10 ^3/uL (0-0.2); Basophils % (auto) 1.2 % (0.0-2.0); Eosinophils # (auto) 0.2 10 ^3/uL (0-0.8); Eosinophils % (auto) 4.6 % (0.0-7.0); Hematocrit 26.4 % (41.0-53.0); Lymphocytes # (auto) 1.1 10 ^3/uL (0.4-5.4); Lymphocytes % (auto) 25.8 % (10.0-50.0); Mean Corpuscular Hemoglobin 31.6 pg (28.0-32.0); Mean Corpuscular Hgb Conc. 34.1 g/dL (32.0-36.0); Mean Corpuscular Volume 92.8 fL (80.0-100.0); Monocytes # (auto) 0.5 10 ^3/uL (0-1.3); Monocytes % (auto) 11.2 % (0.0-12.0); Neutrophils # (auto) 2.5 10 ^3/uL (1.6-8.6); Neutrophils % (auto) 57.2 % (37.0-80.0); Nucleated Red Blood Cells % 0.1 %; Red Blood Cells 2.85 10^6/uL (4.5-5.90); Red Cell Distribution Width 16.2 % (11.8-14.3); White Blood Cell 4.3 10^3/uL (4.4-10.8)
[2023-05-17 08:46] LABS: Urine Bacteria FEW /hpf (None Seen); Urine Blood 3+ /uL (Negative); Urine Specific Gravity 1.018 (1.001-1.035); Urine WBC 268 /hpf (0 - 3); Urine WBC Clumps PRESENT /hpf (None Seen)
[2023-05-17 09:02] LABS: Calcium 8.8 mg/dL (8.5-10.1); Magnesium 2.3 mg/dL (1.6-2.6); Potassium 3.7 mmol/L (3.5-5.1)
[2023-05-17] MEDS: POTASSIUM EFFERVESENT TAB 25 MEQ PO SCH (09:53)
[2023-05-17] MEDS: cefTRIAXone 1GM/50ML D5W 50 ML IV SCH (09:53)
[2023-05-17] MEDS: APIXABAN 5 MG TAB PO SCH ×2 (09:54→21:56)
[2023-05-17] MEDS: SODIUM CHLOR 0.9% PF (SALINE LOCK) 10ML VIAL/SYR IV SCH ×2 (09:54→21:56)
[2023-05-17] MEDS: DIGOXIN 0.125 MG TAB PO SCH (09:54)
[2023-05-17] MEDS: FAMOTIDINE 20 MG TAB PO SCH (09:54)
[2023-05-17] MEDS: FOLIC ACID 1 MG TAB PO SCH (09:54)
[2023-05-17] MEDS: MULTIPLE VITAMINS W/ MINERALS TAB PO SCH (09:54)
[2023-05-17] MEDS: MAGNESIUM OXIDE 400 MG TAB PO SCH (09:54)
[2023-05-17] MEDS: THIAMINE HCL 100 MG TAB PO SCH (09:54)
[2023-05-17] MEDS ORDERED: FUROSEMIDE 40 MG/4 ML VIAL IV SCH (10:00)
[2023-05-17] MEDS: FUROSEMIDE 40 MG/4 ML VIAL IV SCH (10:18)
[2023-05-17] MEDS: HYDROcodone-ACET 5/325MG TAB PO PRN (11:46)
[2023-05-17] MEDS: NOREPINEPHRINE 8 MG/250ML KIT 250 ML IV SCH (15:00)
[2023-05-17] MEDS: SPIRONOLACTONE 25 MG TAB PO SCH (18:58)
[2023-05-18] VITALS (54 sets, daily range): BP systolic 77–115; BP diastolic 32–76
[2023-05-18] MEDS: HYDROcodone-ACET 5/325MG TAB PO PRN ×3 (04:07→21:46)
[2023-05-18 04:58] LABS: Basophils # (auto) 0 10 ^3/uL (0-0.2); Basophils % (auto) 0.9 % (0.0-2.0); Eosinophils # (auto) 0.2 10 ^3/uL (0-0.8); Eosinophils % (auto) 4.1 % (0.0-7.0); Hematocrit 25.1 % (41.0-53.0); Hemoglobin 8.6 g/dL (13.5-17.5); Lymphocytes % (auto) 25.7 % (10.0-50.0); Mean Corpuscular Hemoglobin 31.8 pg (28.0-32.0); Mean Corpuscular Hgb Conc. 34.2 g/dL (32.0-36.0); Mean Corpuscular Volume 92.8 fL (80.0-100.0); Monocytes # (auto) 0.6 10 ^3/uL (0-1.3); Monocytes % (auto) 14.6 % (0.0-12.0); Neutrophils # (auto) 2.1 10 ^3/uL (1.6-8.6); Neutrophils % (auto) 54.7 % (37.0-80.0); Red Blood Cells 2.71 10^6/uL (4.5-5.90); Red Cell Distribution Width 15.8 % (11.8-14.3); White Blood Cell 3.8 10^3/uL (4.4-10.8)
[2023-05-18 05:08] LABS: BUN/Creatinine Ratio 19.2 (10.0-20.0); Calcium 8.3 mg/dL (8.5-10.1)
[2023-05-18] MEDS: MIDODRINE HCL 10 MG TAB PO SCH ×3 (05:45→17:40)
[2023-05-18] MEDS: SPIRONOLACTONE 25 MG TAB PO SCH ×2 (05:46→17:40)
[2023-05-18] MEDS: GENTAMICIN OPTH sol 0.3% 5ml EACHEYE SCH ×3 (05:47→22:00)
[2023-05-18] MEDS: SALINE 0.65 % NASAL SPRAY 45ML BOTTLE EACHNOSTRI SCH ×4 (05:47→22:00)
[2023-05-18] MEDS: LEVOTHYROXINE SODIUM 50 MCG TAB PO SCH (06:43)
[2023-05-18] MEDS: POTASSIUM EFFERVESENT TAB 25 MEQ PO SCH (08:18)
[2023-05-18] MEDS: cefTRIAXone 1GM/50ML D5W 50 ML IV SCH (08:18)
[2023-05-18] MEDS: FOLIC ACID 1 MG TAB PO SCH (08:18)
[2023-05-18] MEDS: MULTIPLE VITAMINS W/ MINERALS TAB PO SCH (08:18)
[2023-05-18] MEDS: THIAMINE HCL 100 MG TAB PO SCH (08:19)
[2023-05-18] MEDS: DIGOXIN 0.125 MG TAB PO SCH (08:19)
[2023-05-18] MEDS: APIXABAN 5 MG TAB PO SCH ×2 (08:19→21:45)
[2023-05-18] MEDS: SODIUM CHLOR 0.9% PF (SALINE LOCK) 10ML VIAL/SYR IV SCH ×2 (08:20→21:46)
[2023-05-18] MEDS: FAMOTIDINE 20 MG TAB PO SCH (08:20)
[2023-05-18] MEDS: MAGNESIUM OXIDE 400 MG TAB PO SCH (08:20)
[2023-05-18] MEDS: FUROSEMIDE 40 MG/4 ML VIAL IV SCH (09:26)
[2023-05-18] MEDS: NOREPINEPHRINE 8 MG/250ML KIT 250 ML IV SCH (14:22)
[2023-05-19] MEDS: HYDROcodone-ACET 5/325MG TAB PO PRN ×2 (04:43→18:23)
[2023-05-19 05:00] VITALS: BP 104/61
[2023-05-19] MEDS: GENTAMICIN OPTH sol 0.3% 5ml EACHEYE SCH ×3 (06:00→21:35)
[2023-05-19] MEDS: LEVOTHYROXINE SODIUM 50 MCG TAB PO SCH (06:16)
[2023-05-19] MEDS: MIDODRINE HCL 10 MG TAB PO SCH ×3 (06:16→18:19)
[2023-05-19] MEDS: SALINE 0.65 % NASAL SPRAY 45ML BOTTLE EACHNOSTRI SCH ×4 (06:16→21:34)
[2023-05-19] MEDS: SPIRONOLACTONE 25 MG TAB PO SCH ×2 (06:16→18:19)
[2023-05-19 09:00] VITALS: BP 108/57
[2023-05-19] MEDS: MULTIPLE VITAMINS W/ MINERALS TAB PO SCH (09:34)
[2023-05-19] MEDS: cefTRIAXone 1GM/50ML D5W 50 ML IV SCH (09:36)
[2023-05-19] MEDS: FOLIC ACID 1 MG TAB PO SCH (09:37)
[2023-05-19] MEDS: FAMOTIDINE 20 MG TAB PO SCH (09:37)
[2023-05-19] MEDS: APIXABAN 5 MG TAB PO SCH ×2 (09:38→21:34)
[2023-05-19] MEDS: DIGOXIN 0.125 MG TAB PO SCH (09:38)
[2023-05-19] MEDS: POTASSIUM EFFERVESENT TAB 25 MEQ PO SCH (09:41)
[2023-05-19] MEDS: SODIUM CHLOR 0.9% PF (SALINE LOCK) 10ML VIAL/SYR IV SCH ×2 (09:41→21:34)
[2023-05-19 12:19] LABS: BUN/Creatinine Ratio 21.3 (10.0-20.0); Calcium 8.5 mg/dL (8.5-10.1); Magnesium 2.7 mg/dL (1.6-2.6)
[2023-05-19 13:00] VITALS: BP 103/57
[2023-05-19 16:45] VITALS: BP 120/70
[2023-05-19] MEDS: GABAPENTIN 100 MG CAP PO SCH (21:34)
[2023-05-19 22:00] VITALS: BP 101/54
[2023-05-20] MEDS: ALPRAZolam 0.25 MG TAB PO PRN (03:24)
[2023-05-20] MEDS: HYDROcodone-ACET 5/325MG TAB PO PRN (04:32)
[2023-05-20 05:00] VITALS: BP_SYST 100; BP_DIAS 56; BP_DIAS 92
[2023-05-20] MEDS: GENTAMICIN OPTH sol 0.3% 5ml EACHEYE SCH (06:00)
[2023-05-20 06:04] LABS: Albumin 3.1 g/dL (3.4-5.0); Calcium 8.6 mg/dL (8.5-10.1); Potassium 3.8 mmol/L (3.5-5.1)
[2023-05-20 06:07] LABS: BUN/Creatinine Ratio 23.1 (10.0-20.0); Bilirubin, Total 0.7 mg/dL (0.2-1.0); Total Protein 8.4 g/dL (6.4-8.2)
[2023-05-20] MEDS: SALINE 0.65 % NASAL SPRAY 45ML BOTTLE EACHNOSTRI SCH ×2 (06:17→12:50)
[2023-05-20] MEDS: MIDODRINE HCL 10 MG TAB PO SCH ×2 (06:17→12:49)
[2023-05-20] MEDS: SPIRONOLACTONE 25 MG TAB PO SCH (06:17)
[2023-05-20] MEDS: LEVOTHYROXINE SODIUM 50 MCG TAB PO SCH (06:17)
[2023-05-20 08:00] VITALS: BP 100/51
[2023-05-20] MEDS: MULTIPLE VITAMINS W/ MINERALS TAB PO SCH (09:24)
[2023-05-20] MEDS: GABAPENTIN 100 MG CAP PO SCH (09:25)
[2023-05-20] MEDS: FAMOTIDINE 20 MG TAB PO SCH (09:25)
[2023-05-20] MEDS: DIGOXIN 0.125 MG TAB PO SCH (09:25)
[2023-05-20] MEDS: SODIUM CHLOR 0.9% PF (SALINE LOCK) 10ML VIAL/SYR IV SCH (09:25)
[2023-05-20] MEDS: APIXABAN 5 MG TAB PO SCH (09:25)
[2023-05-20] MEDS: FOLIC ACID 1 MG TAB PO SCH (09:31)
[2023-05-20] MEDS ORDERED: MID10T PO (10:23)
[2023-05-20] MEDS ORDERED: SPIR25TA PO (10:23)
[2023-05-20] MEDS ORDERED: LEV50T PO (10:23)
[2023-05-20] MEDS ORDERED: DIGO1TAB48 PO (10:23)
[2023-05-20] MEDS ORDERED: APIX5TAB PO (10:23)
[2023-05-20] MEDS ORDERED: FURO1TAB33 PO (10:23)
[2023-05-20 12:00] VITALS: BP 108/61
[2023-05-20 12:40] VITALS: BP 108/61
== END 2023-05-20 13:36 | disposition home or self-care (01) | DRG 194 ==
LOC: EDBD 06:06 → ER 06:06 → TELE 13:18 → TELE-WESTW 05-04 22:10 → DOU IN ICU 05-05 14:39 → ICU CENTRL 05-10 06:09 → TELE-EAST 05-18 18:05
PROVIDERS: ADMIT Nurse Practitioner Family; ATTEND Nurse Practitioner Acute Care
DX: I13.0 Hypertensive heart and chronic kidney disease with heart failure and stage 1 through stage 4 chronic kidney disease, or unspecified chronic kidney disease (principal); J96.01 Acute respiratory failure with hypoxia; K76.7 Hepatorenal syndrome; N17.0 Acute kidney failure with tubular necrosis; K70.40 Alcoholic hepatic failure without coma; K76.82 Hepatic encephalopathy; D63.1 Anemia in chronic kidney disease; I42.9 Cardiomyopathy, unspecified; I50.41 Acute combined systolic (congestive) and diastolic (congestive) heart failure; K70.31 Alcoholic cirrhosis of liver with ascites; N30.00 Acute cystitis without hematuria; E66.01 Morbid (severe) obesity due to excess calories; Z68.41 Body mass index [BMI] 40.0-44.9, adult; N48.83 Acquired buried penis; R33.9 Retention of urine, unspecified; N18.32 Chronic kidney disease, stage 3b; E03.9 Hypothyroidism, unspecified; F15.10 Other stimulant abuse, uncomplicated; H10.9 Unspecified conjunctivitis; I48.91 Unspecified atrial fibrillation; I50.43 Acute on chronic combined systolic (congestive) and diastolic (congestive) heart failure; I36.1 Nonrheumatic tricuspid (valve) insufficiency; Z80.3 Family history of malignant neoplasm of breast; Z82.49 Family history of ischemic heart disease and other diseases of the circulatory system; Z80.0 Family history of malignant neoplasm of digestive organs; Z83.3 Family history of diabetes mellitus; Z91.148 Patient's other noncompliance with medication regimen for other reason
CPT/HCPCS: 36415; 36569; 36600; 71045; 71250; 74176; 76705; 76775; 76870; 80048; 80053; 80061; 80162; 80307; 81001; 82105; 82140; 82306; 82570; 82805; 83036; 83735; 83880; 83970; 84100; 84156; 84300; 84443; 84484; 85025; 85610; 85730; 86704; 86706; 86708; 86803; 87045; 87086; 87205; 87340; 87427; 87493; 93005; 93306; 93970; 94640; 96374; 96375; 97110; 97116; 97163; 97530; 99291; C9113; G0378; J0696; J2405; J3480; J7060; P9047

== ENCOUNTER 2023-05-26 11:02 | Inpatient (IN) | payer OTHER ==
[~2023-05-26] VITALS: Ht 193 cm; Wt 113.0 kg
[~2023-05-26 11:02] MED LIST: APIX5TAB PO; DIGO1TAB48 PO; FURO1TAB33 PO; LEV50T PO; MID10T PO; SPIR25TA PO
[2023-05-26] MEDS ORDERED: FUROSEMIDE 40 MG/4 ML VIAL IV ONE (11:30)
[2023-05-26 12:08] LABS: Basophils # (auto) 0 10 ^3/uL (0-0.2); Basophils % (auto) 0.8 % (0.0-2.0); Eosinophils # (auto) 0.1 10 ^3/uL (0-0.8); Eosinophils % (auto) 2.7 % (0.0-7.0); Hematocrit 28.5 % (41.0-53.0); Hemoglobin 9.5 g/dL (13.5-17.5); Lymphocytes # (auto) 1.1 10 ^3/uL (0.4-5.4); Lymphocytes % (auto) 24.4 % (10.0-50.0); Mean Corpuscular Hemoglobin 31.1 pg (28.0-32.0); Mean Corpuscular Hgb Conc. 33.2 g/dL (32.0-36.0); Mean Corpuscular Volume 93.8 fL (80.0-100.0); Monocytes # (auto) 0.5 10 ^3/uL (0-1.3); Monocytes % (auto) 12.1 % (0.0-12.0); Neutrophils # (auto) 2.7 10 ^3/uL (1.6-8.6); Nucleated Red Blood Cells % 0.2 %; Red Blood Cells 3.04 10^6/uL (4.5-5.90); Red Cell Distribution Width 17.4 % (11.8-14.3); White Blood Cell 4.5 10^3/uL (4.4-10.8)
[2023-05-26 12:36] LABS: Albumin 3.3 g/dL (3.4-5.0); Calcium 8.6 mg/dL (8.5-10.1); Magnesium 1.8 mg/dL (1.6-2.6); Potassium 4.3 mmol/L (3.5-5.1)
[2023-05-26 12:38] LABS: BUN/Creatinine Ratio 23.7 (10.0-20.0)
[2023-05-26 12:51] LABS: Bilirubin, Total 1.1 mg/dL (0.2-1.0); Total Protein 8.8 g/dL (6.4-8.2)
[2023-05-26] MEDS ORDERED: MORPHINE SULFATE INJ 2 MG/ml SYRG IV PRN (15:15)
[2023-05-26] MEDS ORDERED: NITROGLYCERIN 0.4 MG SL TAB SL PRN (15:15)
[2023-05-26 17:17] LABS: Amphetamine Screen, Urine NEGATIVE (NEGATIVE); Barbiturate Scree,Urine NEGATIVE (NEGATIVE); Benzodiazephine Screen, Urine NEGATIVE (NEGATIVE); Cannabinoid Screen, Urine NEGATIVE (NEGATIVE); Cocaine Screen, Urine NEGATIVE (NEGATIVE); Opiate Scree,Urine NEGATIVE (NEGATIVE); Phencyclidine Screen, Urine NEGATIVE (NEGATIVE)
[2023-05-26 17:19] LABS: Alcohol, Urine < 3.0 mg/dL (0-10)
[2023-05-26 17:20] LABS: Urine Bacteria NONE SEEN /hpf (None Seen); Urine Blood 1+ /uL (Negative); Urine Specific Gravity 1.008 (1.001-1.035); Urine WBC 9 /hpf (0 - 3)
[2023-05-26] MEDS: SPIRONOLACTONE 25 MG TAB PO SCH (18:02)
[2023-05-26] MEDS: traMADol HCL 50 MG TAB PO PRN (22:35)
[2023-05-26] MEDS: APIXABAN 5 MG TAB PO SCH (22:35)
[2023-05-26 23:12] VITALS: BP 143/87
[2023-05-27 05:00] VITALS: BP 110/64
[2023-05-27] MEDS: LEVOTHYROXINE SODIUM 50 MCG TAB PO SCH (06:14)
[2023-05-27] MEDS: SPIRONOLACTONE 25 MG TAB PO SCH ×2 (06:14→17:18)
[2023-05-27 06:22] LABS: Potassium 4.6 mmol/L (3.5-5.1)
[2023-05-27 06:41] LABS: BUN/Creatinine Ratio 23.3 (10.0-20.0); Calcium 8.7 mg/dL (8.5-10.1)
[2023-05-27] MEDS ORDERED: ALPRAZolam 0.25 MG TAB PO PRN (08:00)
[2023-05-27 09:00] VITALS: BP 113/68
[2023-05-27] MEDS: FUROSEMIDE 40 MG/4 ML VIAL IV SCH (09:03)
[2023-05-27] MEDS: traMADol HCL 50 MG TAB PO PRN ×2 (09:04→20:00)
[2023-05-27] MEDS: APIXABAN 5 MG TAB PO SCH ×2 (09:04→21:13)
[2023-05-27] MEDS: SACUBITRIL-VALSARTAN 24mg/26mg TAB PO SCH ×2 (09:04→21:13)
[2023-05-27 13:00] VITALS: BP 102/60
[2023-05-27 17:00] VITALS: BP 112/74
[2023-05-27 23:00] VITALS: BP 106/62
[2023-05-28 04:20] VITALS: BP 100/52
[2023-05-28] MEDS: SPIRONOLACTONE 25 MG TAB PO SCH ×2 (06:23→14:22)
[2023-05-28] MEDS: LEVOTHYROXINE SODIUM 50 MCG TAB PO SCH (06:23)
[2023-05-28 08:00] VITALS: BP 119/63
[2023-05-28 08:37] VITALS: BP 101/55
[2023-05-28] MEDS: APIXABAN 5 MG TAB PO SCH ×2 (09:46→22:40)
[2023-05-28] MEDS: FUROSEMIDE 40 MG/4 ML VIAL IV SCH (09:46)
[2023-05-28] MEDS ORDERED: DIGOXIN 0.125 MG TAB PO SCH (10:00)
[2023-05-28] MEDS: SACUBITRIL-VALSARTAN 24mg/26mg TAB PO SCH ×2 (11:20→22:40)
[2023-05-28 13:00] VITALS: BP 109/58
[2023-05-28] MEDS: traMADol HCL 50 MG TAB PO PRN (15:13)
[2023-05-28 17:06] VITALS: BP 136/70
[2023-05-28 22:00] VITALS: BP 125/66
[2023-05-29 05:16] VITALS: BP 107/64
[2023-05-29] MEDS: LEVOTHYROXINE SODIUM 50 MCG TAB PO SCH (06:03)
[2023-05-29] MEDS: SPIRONOLACTONE 25 MG TAB PO SCH (06:04)
[2023-05-29] MEDS: traMADol HCL 50 MG TAB PO PRN (06:09)
[2023-05-29 06:44] LABS: Basophils # (auto) 0 10 ^3/uL (0-0.2); Basophils % (auto) 1.3 % (0.0-2.0); Eosinophils # (auto) 0.1 10 ^3/uL (0-0.8); Eosinophils % (auto) 3.3 % (0.0-7.0); Hematocrit 27.6 % (41.0-53.0); Hemoglobin 9.4 g/dL (13.5-17.5); Lymphocytes # (auto) 1.1 10 ^3/uL (0.4-5.4); Lymphocytes % (auto) 28.7 % (10.0-50.0); Mean Corpuscular Hemoglobin 31.6 pg (28.0-32.0); Mean Corpuscular Volume 93.1 fL (80.0-100.0); Monocytes # (auto) 0.6 10 ^3/uL (0-1.3); Monocytes % (auto) 14.6 % (0.0-12.0); Neutrophils # (auto) 2.1 10 ^3/uL (1.6-8.6); Neutrophils % (auto) 52.1 % (37.0-80.0); Nucleated Red Blood Cells % 0.3 %; Red Blood Cells 2.96 10^6/uL (4.5-5.90); Red Cell Distribution Width 17.4 % (11.8-14.3)
[2023-05-29 07:06] LABS: Potassium 4.9 mmol/L (3.5-5.1)
[2023-05-29 07:13] LABS: Albumin 2.9 g/dL (3.4-5.0); BUN/Creatinine Ratio 22.4 (10.0-20.0); Calcium 8.8 mg/dL (8.5-10.1); Total Protein 8.2 g/dL (6.4-8.2)
[2023-05-29 08:00] VITALS: BP 127/74
[2023-05-29 08:20] VITALS: BP 127/74
[2023-05-29] MEDS: SACUBITRIL-VALSARTAN 24mg/26mg TAB PO SCH (09:17)
[2023-05-29] MEDS: APIXABAN 5 MG TAB PO SCH (09:18)
[2023-05-29] MEDS ORDERED: FUROSEMIDE 40 MG TAB PO SCH (10:00)
[2023-05-29] MEDS ORDERED: SACU1TAB PO (11:29)
[2023-05-29] MEDS ORDERED: FURO40TA4 PO (11:29)
[2023-05-29 11:57] VITALS: BP 127/74
[2023-05-29 12:54] VITALS: BP 123/57
[2023-05-29] MEDS ORDERED: ALPR0.25 PO (14:12)
== END 2023-05-29 14:30 | disposition home or self-care (01) | DRG 194 ==
LOC: ER 11:02 → TELE 15:06 → TELE-WESTW 22:01
PROVIDERS: ADMIT Nurse Practitioner Acute Care; ATTEND Internal Medicine
DX: I13.0 Hypertensive heart and chronic kidney disease with heart failure and stage 1 through stage 4 chronic kidney disease, or unspecified chronic kidney disease (principal); N17.0 Acute kidney failure with tubular necrosis; R18.8 Other ascites; I50.43 Acute on chronic combined systolic (congestive) and diastolic (congestive) heart failure; I42.9 Cardiomyopathy, unspecified; I48.91 Unspecified atrial fibrillation; Z79.01 Long term (current) use of anticoagulants; D64.9 Anemia, unspecified; E03.9 Hypothyroidism, unspecified; E66.9 Obesity, unspecified; F41.9 Anxiety disorder, unspecified; G47.00 Insomnia, unspecified; Z68.30 Body mass index [BMI] 30.0-30.9, adult; N18.32 Chronic kidney disease, stage 3b
CPT/HCPCS: 36415; 71046; 80048; 80053; 80162; 80307; 81001; 83735; 83880; 84443; 84484; 85025; 87081; 93005; G0378

== ENCOUNTER 2023-09-02 11:08 | Inpatient (IN) | payer MEDICAID, OTHER ==
[~2023-09-02] VITALS: Ht 190.5 cm; Wt 100.1 kg
[~2023-09-02 11:08] MED LIST changes: +ALPR0.25 PO; -FURO1TAB33 PO; +FURO40TA4 PO; -MID10T PO; +SACU1TAB PO
[2023-09-02 11:57] LABS: Basophils # (auto) 0 10 ^3/uL (0-0.2); Basophils % (auto) 0.7 % (0.0-2.0); Eosinophils # (auto) 0.1 10 ^3/uL (0-0.8); Eosinophils % (auto) 3.6 % (0.0-7.0); Hematocrit 33.1 % (41.0-53.0); Hemoglobin 11.3 g/dL (13.5-17.5); Lymphocytes # (auto) 1.1 10 ^3/uL (0.4-5.4); Lymphocytes % (auto) 26.2 % (10.0-50.0); Mean Corpuscular Hemoglobin 32.2 pg (28.0-32.0); Mean Corpuscular Hgb Conc. 34.2 g/dL (32.0-36.0); Mean Corpuscular Volume 94.1 fL (80.0-100.0); Monocytes # (auto) 0.4 10 ^3/uL (0-1.3); Monocytes % (auto) 10.4 % (0.0-12.0); Neutrophils # (auto) 2.5 10 ^3/uL (1.6-8.6); Neutrophils % (auto) 59.1 % (37.0-80.0); Nucleated Red Blood Cells % 0.1 %; Red Blood Cells 3.52 10^6/uL (4.5-5.90); Red Cell Distribution Width 13.2 % (11.8-14.3); White Blood Cell 4.1 10^3/uL (4.4-10.8)
[2023-09-02 12:18] LABS: Alanine Aminotransferase 16 U/L (7-40); Albumin 3.7 g/dL (3.2-4.8); Alkaline Phosphatase 108 U/L (46-116); Anion Gap 3 (5-15); Aspartate Aminotransferase 26 U/L (13-40); BUN/Creatinine Ratio 10.4 (10.0-20.0); Bilirubin, Total 1.5 mg/dL (0.2-1.0); Blood Urea Nitrogen 11 mg/dL (9-23); Calcium 8.9 mg/dL (8.5-10.1); Carbon Dioxide 32 mmol/L (20-30); Chloride 103 mmol/L (98-107); Glucose 94 mg/dL (74-106); Potassium 4.1 mmol/L (3.5-5.1); Sodium 138 mmol/L (136-145); Total Protein 7.3 g/dL (5.7-8.2)
[2023-09-02] MEDS ORDERED: IOHEXOL 350 MG/ML 100ML IJ ONE ×2 (12:29→13:23)
[2023-09-02] MEDS ORDERED: cefTRIAXone 1GM/50ML D5W 50 ML IV ONE (12:30)
[2023-09-02] MEDS ORDERED: CLINDAMYCIN HCL 150 MG CAP PO ONE (12:30)
[2023-09-02 13:21] LABS: INR 1.12 (0.9-1.15); Partial Thromboplastin Time 27.7 SEC (24.5-34.5); Prothrombin Time 11.7 sec (9.3-11.8)
[2023-09-02 13:53] VITALS: O2SAT 100
[2023-09-02 13:56] LABS: Erythrocyte Sedimentation Rate 14 mm/hr (0-20)
[2023-09-02 14:05] LABS: Urine Bacteria FEW /hpf (None Seen); Urine Blood 3+ /uL (Negative); Urine Budding Yeast MODERATE /hpf (None Seen); Urine Clarity HAZY (Clear); Urine Color Yellow (Yellow); Urine Protein, UAD 1+ (Negative); Urine Specific Gravity 1.013 (1.001-1.035); Urine Urobilinogen Normal (Negative); Urine WBC 68 /hpf (0 - 3); Urine pH 6.5 (5.0-8.0)
[2023-09-02] MEDS ORDERED: VERI2.5T PO (18:12)
[2023-09-02] MEDS ORDERED: MORPHINE SULFATE INJ 2 MG/ml SYRG IV PRN (18:15)
[2023-09-02] MEDS ORDERED: ALPRAZolam 0.25 MG TAB PO PRN (18:15)
[2023-09-02] MEDS ORDERED: ACETAMINOPHEN 325 MG TAB PO PRN (18:15)
[2023-09-02] MEDS ORDERED: ONDANSETRON HCL 4 MG/2 ML VIAL IV PRN (18:15)
[2023-09-02] MEDS ORDERED: DOCUSATE SOD 100 MG CAP PO PRN (18:15)
[2023-09-02 20:12] LABS: Amphetamine Screen, Urine Pos (NEGATIVE); Barbiturate Scree,Urine Neg (NEGATIVE); Benzodiazephine Screen, Urine Neg (NEGATIVE); Cannabinoid Screen, Urine Neg (NEGATIVE); Cocaine Screen, Urine Neg (NEGATIVE); Opiate Scree,Urine Neg (NEGATIVE); Phencyclidine Screen, Urine Neg (NEGATIVE)
[2023-09-02] MEDS: SACUBITRIL-VALSARTAN 24mg/26mg TAB PO SCH (22:00)
[2023-09-02] MEDS: APIXABAN 5 MG TAB PO SCH (22:00)
[2023-09-03 01:32] VITALS: BP 143/73; PULSE 76; RESP 20; TEMP 98.7; O2SAT 98
[2023-09-03] MEDS: HYDROcodone-ACET 5/325MG TAB PO PRN ×2 (01:51→10:06)
[2023-09-03 05:00] VITALS: BP 115/59; PULSE 90; RESP 18; TEMP 98.5; O2SAT 97
[2023-09-03 06:37] LABS: Alanine Aminotransferase 10 U/L (7-40); Albumin 3.3 g/dL (3.2-4.8); Alkaline Phosphatase 99 U/L (46-116); Anion Gap 6 (5-15); Aspartate Aminotransferase 26 U/L (13-40); BUN/Creatinine Ratio 10.7 (10.0-20.0); Bilirubin, Total 1.2 mg/dL (0.2-1.0); Blood Urea Nitrogen 11 mg/dL (9-23); Calcium 8.7 mg/dL (8.7-10.4); Carbon Dioxide 29 mmol/L (20-30); Chloride 105 mmol/L (98-107); Potassium 3.6 mmol/L (3.5-5.1); Sodium 140 mmol/L (136-145)
[2023-09-03 06:38] LABS: Total Protein 6.4 g/dL (5.7-8.2)
[2023-09-03] MEDS ORDERED: LEVOTHYROXINE SODIUM 50 MCG TAB PO SCH (07:00)
[2023-09-03 07:07] LABS: Glucose 89 mg/dL (74-106)
[2023-09-03 07:23] LABS: Basophils # (auto) 0 10 ^3/uL (0-0.2); Basophils % (auto) 0.6 % (0.0-2.0); Eosinophils # (auto) 0.2 10 ^3/uL (0-0.8); Eosinophils % (auto) 4.5 % (0.0-7.0); Hemoglobin 10.5 g/dL (13.5-17.5); Lymphocytes # (auto) 0.9 10 ^3/uL (0.4-5.4); Lymphocytes % (auto) 22.8 % (10.0-50.0); Mean Corpuscular Hemoglobin 31.8 pg (28.0-32.0); Mean Corpuscular Hgb Conc. 33.9 g/dL (32.0-36.0); Mean Corpuscular Volume 93.8 fL (80.0-100.0); Monocytes # (auto) 0.5 10 ^3/uL (0-1.3); Monocytes % (auto) 12.2 % (0.0-12.0); Neutrophils # (auto) 2.3 10 ^3/uL (1.6-8.6); Neutrophils % (auto) 59.9 % (37.0-80.0); Red Blood Cells 3.31 10^6/uL (4.5-5.90); Red Cell Distribution Width 13.1 % (11.8-14.3); White Blood Cell 3.8 10^3/uL (4.4-10.8)
[2023-09-03 08:00] VITALS: BP 113/79; PULSE 80; RESP 18; TEMP 97.9; O2SAT 99
[2023-09-03 08:43] VITALS: BP 113/79; PULSE 80; RESP 18; TEMP 97.9; O2SAT 99
[2023-09-03] MEDS ORDERED: cefTRIAXone 1GM/50ML D5W 50 ML IV SCH (09:00)
[2023-09-03] MEDS ORDERED: VERICIGUAT 2.5 MG PO SCH (10:00)
[2023-09-03] MEDS ORDERED: PANTOPRAZOLE 40 MG TAB PO SCH (10:00)
[2023-09-03] MEDS: SACUBITRIL-VALSARTAN 24mg/26mg TAB PO SCH (10:06)
[2023-09-03] MEDS: APIXABAN 5 MG TAB PO SCH (10:06)
[2023-09-04] MEDS ORDERED: DIGOXIN 0.125 MG TAB PO SCH (10:00)
== END 2023-09-03 13:25 | disposition left against medical advice (07) | DRG 383 ==
LOC: ER 11:08 → OVERFLOW 18:09 → WEST WING 23:47
PROVIDERS: ADMIT Nurse Practitioner Family; ATTEND Internal Medicine
DX: L03.116 Cellulitis of left lower limb (principal); I13.2 Hypertensive heart and chronic kidney disease with heart failure and with stage 5 chronic kidney disease, or end stage renal disease; E03.9 Hypothyroidism, unspecified; N18.6 End stage renal disease; N30.00 Acute cystitis without hematuria; Z53.29 Procedure and treatment not carried out because of patient's decision for other reasons; E78.5 Hyperlipidemia, unspecified; I50.9 Heart failure, unspecified
CPT/HCPCS: 36415; 71275; 80053; 80162; 80307; 81001; 83605; 83880; 84484; 85025; 85610; 85652; 85730; 86141; 87040; 87081; 87086; 93970; 96365; 96368; G0378; J0696

== ENCOUNTER → 2024-02-01 | Outpatient (CLI) | payer MEDICAID ==
[~2024-02-01] MED LIST changes: +VERI2.5T PO
== END | disposition home or self-care (01) ==
LOC: Rad HDHVI 10:36
PROVIDERS: ATTEND Internal Medicine Cardiovascular Disease
DX: Z01.818 Encounter for other preprocedural examination (principal); I08.1 Rheumatic disorders of both mitral and tricuspid valves
CPT/HCPCS: 93306

== ENCOUNTER → 2024-04-05 | Outpatient (CLI) | payer MEDICAID ==
[~2024-04-05] MED LIST changes: +ANGIOMAX 250 MG VIAL IV ONE; +APIX2.5T PO; +DIGO0.12 PO; +HYDROmorphone HCL 2 MG/ML VL/or syr ONE; +LEVO50TA7 PO; +MIDAZOLAM HCL 2MG/2ML 2ml VIAL (1mg/ml) ONE; +OMEP20TA PO; +SODIUM CHL 0.9% 0 ML ONE; +fentaNYL CITRATE 100 MCG/2 ML VL ONE
[2024-04-05 10:32] VITALS: BP 130/71; PULSE 68; RESP 16; O2SAT 100
[2024-04-05 10:39] VITALS: BP 117/66; PULSE 70; RESP 18; O2SAT 100
== END | disposition home or self-care (01) ==
LOC: CHF HDHVI 09:50
PROVIDERS: ATTEND Internal Medicine Cardiovascular Disease
DX: Z01.818 Encounter for other preprocedural examination (principal); I25.10 Atherosclerotic heart disease of native coronary artery without angina pectoris; I42.0 Dilated cardiomyopathy
CPT/HCPCS: 71046; 93005; G0463

== ENCOUNTER 2024-04-06 06:56 | Day surgery (SDC) | payer MEDICAID ==
[2024-04-05 12:52] LABS: Basophils # (auto) 0 10 ^3/uL (0-0.2); Basophils % (auto) 0.5 % (0.0-2.0); Eosinophils # (auto) 0.1 10 ^3/uL (0-0.8); Eosinophils % (auto) 1.9 % (0.0-7.0); Hematocrit 37.2 % (41.0-53.0); Hemoglobin 12.3 g/dL (13.5-17.5); Lymphocytes # (auto) 1.5 10 ^3/uL (0.4-5.4); Lymphocytes % (auto) 28.1 % (10.0-50.0); Mean Corpuscular Hemoglobin 30.4 pg (28.0-32.0); Mean Corpuscular Hgb Conc. 33.2 g/dL (32.0-36.0); Mean Corpuscular Volume 91.5 fL (80.0-100.0); Monocytes # (auto) 0.5 10 ^3/uL (0-1.3); Monocytes % (auto) 9.4 % (0.0-12.0); Neutrophils # (auto) 3.2 10 ^3/uL (1.6-8.6); Neutrophils % (auto) 60.1 % (37.0-80.0); Nucleated Red Blood Cells % 0.1 %; Red Blood Cells 4.07 10^6/uL (4.5-5.90); Red Cell Distribution Width 12.6 % (11.8-14.3); White Blood Cell 5.3 10^3/uL (4.4-10.8)
[2024-04-05 12:55] LABS: Anion Gap 3 (5-15); Calcium 9.3 mg/dL (8.5-10.1); Carbon Dioxide 31 mmol/L (20-30); Chloride 101 mmol/L (98-107); Potassium 3.8 mmol/L (3.5-5.1); Sodium 135 mmol/L (136-145)
[2024-04-05 13:01] LABS: BUN/Creatinine Ratio 9.1 (10.0-20.0); Blood Urea Nitrogen 12 mg/dL (9-23); Glucose 89 mg/dL (74-106)
[2024-04-05 13:07] LABS: INR 1.05 (0.9-1.15); Partial Thromboplastin Time 27.8 SEC (24.5-34.5); Prothrombin Time 11.1 sec (9.3-11.8)
[~2024-04-06] VITALS: Ht 193 cm; Wt 113.4 kg
[2024-04-06] VITALS (9 sets, daily range): BP systolic 115–122; BP diastolic 65–71; PULSE 62–70; RESP 12; O2SAT 90–100
[~2024-04-06 06:56] MED LIST changes: -ALPR0.25 PO; -ANGIOMAX 250 MG VIAL IV ONE; -APIX5TAB PO; -DIGO1TAB48 PO; -HYDROmorphone HCL 2 MG/ML VL/or syr ONE; -LEV50T PO; -MIDAZOLAM HCL 2MG/2ML 2ml VIAL (1mg/ml) ONE; -SODIUM CHL 0.9% 0 ML ONE; -SPIR25TA PO; -fentaNYL CITRATE 100 MCG/2 ML VL ONE
[2024-04-06] MEDS ORDERED: LIDOCAINE 2%HCL (LOCAL ANESTH.) INJ 20ML MDV ONE (08:19)
[2024-04-06] MEDS ORDERED: IOHEXOL 350 MG/ML 100ML IJ ONE (08:19)
[2024-04-06] MEDS ORDERED: fentaNYL CITRATE 100 MCG/2 ML VL ONE (09:27)
[2024-04-06] MEDS ORDERED: MIDAZOLAM HCL 2MG/2ML 2ml VIAL (1mg/ml) ONE (09:27)
[2024-04-06] MEDS ORDERED: HYDROmorphone HCL 2 MG/ML VL/or syr ONE (09:27)
== END 2024-04-06 11:30 | disposition home or self-care (01) ==
LOC: CATH 06:56
PROVIDERS: ATTEND Internal Medicine Cardiovascular Disease
DX: R06.02 Shortness of breath (principal); I13.0 Hypertensive heart and chronic kidney disease with heart failure and stage 1 through stage 4 chronic kidney disease, or unspecified chronic kidney disease; I50.9 Heart failure, unspecified; N18.9 Chronic kidney disease, unspecified; I48.91 Unspecified atrial fibrillation; Z82.49 Family history of ischemic heart disease and other diseases of the circulatory system; Z79.899 Other long term (current) drug therapy; Z98.890 Other specified postprocedural states
CPT/HCPCS: 36415; 80048; 85025; 85610; 85730; 93458; C1760; C1894; J1170; J1644; J2250; J3010; Q9967; 99152

== ENCOUNTER → 2024-04-12 | Day surgery (SDC) | payer MEDICAID ==
[2024-04-05 13:04] LABS: INR 1.05 (0.9-1.15); Partial Thromboplastin Time 27.8 SEC (24.5-34.5); Prothrombin Time 11.1 sec (9.3-11.8)
[2024-04-05 13:15] LABS: Basophils # (auto) 0 10 ^3/uL (0-0.2); Basophils % (auto) 0.5 % (0.0-2.0); Eosinophils # (auto) 0.1 10 ^3/uL (0-0.8); Eosinophils % (auto) 1.6 % (0.0-7.0); Hematocrit 36.6 % (41.0-53.0); Hemoglobin 12.2 g/dL (13.5-17.5); Lymphocytes # (auto) 1.4 10 ^3/uL (0.4-5.4); Lymphocytes % (auto) 26.6 % (10.0-50.0); Mean Corpuscular Hemoglobin 30.6 pg (28.0-32.0); Mean Corpuscular Hgb Conc. 33.4 g/dL (32.0-36.0); Mean Corpuscular Volume 91.5 fL (80.0-100.0); Monocytes # (auto) 0.5 10 ^3/uL (0-1.3); Monocytes % (auto) 9.5 % (0.0-12.0); Neutrophils # (auto) 3.2 10 ^3/uL (1.6-8.6); Neutrophils % (auto) 61.8 % (37.0-80.0); Red Blood Cells 3.99 10^6/uL (4.5-5.90); Red Cell Distribution Width 12.7 % (11.8-14.3); White Blood Cell 5.2 10^3/uL (4.4-10.8)
[2024-04-05 13:18] LABS: Alanine Aminotransferase 16 U/L (7-40); Alkaline Phosphatase 103 U/L (46-116); Anion Gap 4 (5-15); Aspartate Aminotransferase 24 U/L (13-40); BUN/Creatinine Ratio 9.2 (10.0-20.0); Bilirubin, Total 2.5 mg/dL (0.2-1.0); Blood Urea Nitrogen 12 mg/dL (9-23); Calcium 9.1 mg/dL (8.5-10.1); Carbon Dioxide 30 mmol/L (20-30); Chloride 102 mmol/L (98-107); Glucose 89 mg/dL (74-106); Potassium 3.8 mmol/L (3.5-5.1); Sodium 136 mmol/L (136-145)
[2024-04-05 13:19] LABS: Total Protein 7.1 g/dL (5.7-8.2)
[2024-04-05 13:53] LABS: Urine Bacteria FEW /hpf (None Seen); Urine Blood 2+ /uL (Negative); Urine Clarity Clear (Clear); Urine Color Light-Yellow (Yellow); Urine Protein, UAD Negative (Negative); Urine Specific Gravity 1.007 (1.001-1.035); Urine Urobilinogen Normal (Negative); Urine WBC 66 /hpf (0 - 3); Urine pH 5.5 (5.0-9.0)
[~2024-04-12] VITALS: Ht 193 cm; Wt 113.4 kg
[~2024-04-12] MED LIST changes: +ACETAMINOPHEN IV 100 ML IV ONE; +DexAMETHasone SOD PHOS 10MG/1ML VIAL INJ ONE; +FLUMAZENIL 0.1 MG/ML INJ 10ML MDV IV PRN; +GLYCOPYRROLATE 0.2 MG/ML 1ML VIAL ONE; +HYDROmorphone HCL 2 MG/ML VL/or syr IV PRN; +KETAMINE 50mg/ML 1ml syringe ONE; +KETOROLAC TROMETH 30 MG/ML 1ML VIAL ONE; +LABETALOL HCL 5 MG/ML 4ML SYRINGE IV PRN; +LIDOCAINE 2% (LOCAL ANESTH.) PF 5ml SDV ONE; +LIDOCAINE HCL 2% TOP JELLY 5ML TOP ONE; +NALOXONE HCL 0.4 MG/ML VIAL IV PRN; +ONDANSETRON HCL 4 MG/2 ML VIAL IV PRN; +ONDANSETRON HCL 4 MG/2 ML VIAL ONE; +PROPOFOL 10 MG/ML 20 ML IV ONE; +ROCURONIUM 10MG/ML 10ML VIAL IV ONE; +SUGAMMADEX 200mg/2ml Vial (100MG/ML) IV ONE; +ceFAZolin 1GM/50ML 50 ML IV ONE; +ePHEDrine SULFATE 50 MG/ML AMP IV PRN; +fentaNYL CITRATE 100 MCG/2 ML VL IV PRN; +fentaNYL CITRATE 100 MCG/2 ML VL ONE; +hydrALAZINE HCL 20 MG/ML VL IV PRN; +oxyCODONE HCL 5MG TAB PO PRN
[2024-04-12] MEDS: GABAPENTIN 400 MG CAP PO ONE (09:00)
[2024-04-12] MEDS: ACETAMINOPHEN IV 1000 MG/100ML (10MG/ML) IV ONE (09:00)
[2024-04-12] MEDS: CELECOXIB 100 MG CAP PO ONE (09:00)
[2024-04-12] MEDS: BUPIVACAINE W/ EPINEPH 0.5% INJ 50ML MDV IJ ONE (09:18)
[2024-04-12 09:58] VITALS: TEMP 97.5; O2SAT 100
[2024-04-12 11:44] VITALS: BP 110/66; PULSE 70; RESP 12; O2SAT 94
== END | disposition home or self-care (01) ==
LOC: SUR 08:07
PROVIDERS: ATTEND Surgery
DX: K40.90 Unilateral inguinal hernia, without obstruction or gangrene, not specified as recurrent (principal); I13.0 Hypertensive heart and chronic kidney disease with heart failure and stage 1 through stage 4 chronic kidney disease, or unspecified chronic kidney disease; I50.9 Heart failure, unspecified; N18.30 Chronic kidney disease, stage 3 unspecified; I48.91 Unspecified atrial fibrillation; I42.9 Cardiomyopathy, unspecified; E03.9 Hypothyroidism, unspecified; K21.9 Gastro-esophageal reflux disease without esophagitis; E66.9 Obesity, unspecified; Z68.30 Body mass index [BMI] 30.0-30.9, adult; Z79.899 Other long term (current) drug therapy; Z98.890 Other specified postprocedural states
CPT/HCPCS: 36415; 49505; 80053; 81001; 85025; 85610; 85730; 87086; 88302; J0131; J0690; J1100; J1170; J2001; J2405; J2704; J1885